=== PATIENT | female | born 1955 | race Caucasian/White ===

== ENCOUNTER → 2020-10-11 | Day surgery (SDC) | payer OTHER ==
[~2020-10-11] VITALS: Ht 162.6 cm; Wt 71.7 kg
[~2020-10-11] MED LIST: ALDACTONE25 MG PO; BUPROPION XL150 MG PO; BUSPAR5 MG PO; CLARITIN10 M2 PO; CRESTOR40 MG PO; FENOFIBRATE134 MG PO; FOSAMAX70 MG PO; GABAPENTIN600 MG PO; LOPRESSOR50 MG PO; NORCO 5-325 TA1 EACH PO; NORVASC5 MG PO; PERCOCET 5-3251 EACH PO; PROZAC20 MG PO
[2020-10-11 06:47] LABS: HCT 40.8 % (37.0-47.0); HGB 13.5 g/dl (12.5-16.0); MCH 30.2 pg (25.0-31.0); MCHC 33.1 g/dL (32.0-36.0); MCV 91.3 fL (78.0-100.0); MPV 9.8 fL (6.0-9.5); RBC 4.47 M/uL (4.20-5.40); RDW 11.9 % (11.5-14.0); WBC 6.7 K/uL (4.0-10.5)
[2020-10-11 07:11] LABS: BILIRUBIN - TOTAL 0.3 mg/dL (0.2-1.0); BUN/CREAT RATIO (CALC) 20.5 RATIO; CREATININE 0.78 mg/dL (0.51-0.95); GLOBULIN (CALCULATION) 3.6 g/dL; POTASSIUM 3.9 mmol/L (3.5-5.1); TOTAL PROTEIN 7.6 g/dL (6.4-8.2)
== END | disposition home or self-care (01) ==
LOC: FAS 06:03
PROVIDERS: Orthopaedic Surgery
DX: G56.03 Carpal tunnel syndrome, bilateral upper limbs (principal)
CPT/HCPCS: 36415; 80053; J1100; J1170; J1885; J2250; J2405; J2704; J3010; J7120